=== PATIENT | male | born 1930 | race Caucasian/White ===

== ENCOUNTER → 2017-08-28 | Outpatient (CLI) | payer MEDICARE, BC ==
--- NOTE | 2017-09-12 00:25 | ONC ---
[place] [address] RADIATION ONCOLOGY NOTE Name: GEORGINA HARLEY Room: [facility]#: [id number] Admission: 08/28/17 Attend Phys: Perdo Lake MD Discharge: Date of : [birth year] Report #: [id number] THIS REPORT FOR: //name// CC: Pedro Larry MD DATE OF CONSULTATION: 08/28/2017 [facility] REFERRING PHYSICIAN: Dr. Juan Jose Ovalle and Dr. Fuda Larry. The patient was seen on 08/28/2017. 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 HISTORY OF PRESENT ILLNESS: The patient is an 87-year-old man who had a Mohs surgery of the nose about a couple of years ago with Dr. Carreno and now, he has a recurrent basal cell cancer. He has noticed the skin changes about 2-3 months ago and had that biopsied by Dr. Ovalle and it was a basal cell cancer. He is not interested in further resection of that area, so he is presenting to discuss radiation therapy. PAST MEDICAL HISTORY AND PAST SURGICAL HISTORY: Includes hearing loss, hypertension. MEDICATIONS: Benazepril, hydrochlorothiazide, metoprolol, amlodipine, Crestor, Zetia, tamsulosin, Finasteride, and a multivitamin pill. Allergies: No known drug allergies. FAMILY HISTORY: Mother had cardiac issues. SOCIAL HISTORY: The patient is retired. Children, he has a daughter. Ethanol: he does not drink alcohol containing drinks. Cigarettes: he does not smoke cigarettes. REVIEW OF SYSTEMS: GENERAL: The patient did not have any fevers or chills. SKIN: The patient has color changes on his nose. LYMPH NODES: He has no enlarged or painful glands in the neck. ENDOCRINE: He denied having any hot or cold intolerance. HEMATOLOGY AND IMMUNOLOGY: He denied having any recent bleeding. MUSCULOSKELETAL: [place] [address] RADIATION ONCOLOGY NOTE Name: GEORGINA HARLEY Room: [facility]#: [id number] Admission: 08/28/17 Attend Phys: Pedro Lake MD Discharge: Date of : [birth year] Report #: [id number] HEAD AND NECK: He has chronic tinnitus. RESPIRATORY: He denied having any shortness of breath. CARDIOVASCULAR: He denied having any palpitations. GASTROINTESTINAL: He denied having any nausea or vomiting. NEUROLOGIC: He denied having any focal weakness. PHYSICAL EXAMINATION: GENERAL/PSYCHIATRIC: The patient was alert and oriented. HEAD,EARS,NOSE,THROAT: Mouth has no visible lesions. Nose; has a pearly lesion that measured about 1.8 cm. x 1.8 cm. involving the skin on the left side of the nose. EYES: Pupils were equal, round, and reactive t light and accomodation. Extraocular movements were intact. LYMPH NODES: There is no cervical lymphadenopathy. HEART: had a regular rate and rhythm. LUNGS: were clear to auscultation. ABDOMEN: was not tender. Liver was at the costal margin. NEUROLOGIC: cranial nerves II to XII were intact. Sensation was intact. The patient hasd 4 out of 5 strength in his extremities. EXTREMITIES: had no clubbing, cyanosis, or edema. ASSESSMENT AND PLAN: The patient has an early basal cell carcinoma of the nose. He has had a previous resection of the area a couple of years ago. He understands he can have resection of this area versus radiation therapy. He is not interested in further resection of that area. He was offered radiation therapy. The effectiveness of radiation therapy can be found in the article entitled "Radiotherapy for Epithelial Skin Cancer" and Dr. Alexander was one of the authors from 2000. The overall local control rate was 89% and with basal cell carcinoma it was 92%. The risk, benefits, and logistics of radiation therapy were discussed with the patient in detail. He gave his witnessed, informed consent to proceed with radiation therapy. Thank you for this consult. <ELECTRONICALLY SIGNED> By: Pedro Lake MD 09/12/17 0025 [id number] 1924Dmarvin Lake MD /nt
== END ==
LOC: M.RTH 03:56
DX: C44.311 Basal cell carcinoma of skin of nose (principal); I10 Essential (primary) hypertension